=== PATIENT | female | born 2000 | race Caucasian/White ===

== ENCOUNTER 2018-01-14 11:40 | Emergency (ER) | payer MEDICAID ==
[~2018-01-14] VITALS: Ht 154.9 cm; Wt 68.9 kg
[2018-01-14 11:46] VITALS: BP 111/80
[2018-01-14] MEDS ORDERED: KETOROLAC 60 MG/2 ML VIAL IM ONE (12:05)
[2018-01-14] MEDS ORDERED: LEVOFLOXACIN 500 MG TAB PO ONE (12:05)
[2018-01-14 12:26] VITALS: BP 111/80
[2018-01-14 12:29] LABS: APPEARANCE,URINE SL CLOUDY (CLEAR); BILIRUBIN,URINE NEGATIVE (NEGATIVE); BLOOD, URINE 3+ (NEGATIVE); COLOR,URINE YELLOW (YELLOW); LEUKOCYTE ESTERASE ,URINE 3+ (NEGATIVE); NITRITE, URINE NEGATIVE (NEGATIVE); PH,URINE 5.5 (5.0-9.0); UGLUCOSE NEGATIVE (NEGATIVE)
[2018-01-14 12:38] LABS: RBC,URINE 3-10 (FEW) /HPF (0-5)
[2018-01-14 12:39] LABS: WBC,URINE 60-80 /HPF (0-5)
== END 2018-01-14 12:26 | disposition home or self-care (01) ==
LOC: MED 11:40
DX: N39.0 Urinary tract infection, site not specified (principal)
CPT/HCPCS: 81001; 81025; 87086; 87186; 96372; 99284; J1885; 81002